=== PATIENT | male | born 1985 | race Two or more races ===

== ENCOUNTER 2023-06-06 15:45 | Emergency (ER) | payer OTHER ==
[~2023-06-06] VITALS: Ht 182.9 cm; Wt 59.0 kg
[2023-06-06 17:09] LABS: HEMATOCRIT 41.5 % (39.0-48.0); HEMOGLOBIN 14.4 g/dL (13-16.00); MEAN CELL VOLUME 90.1 fL (80.0-100.00); MEAN CORPUSCULAR HEMOGLOBIN 31.3 pg (27.00-32.0); MEAN CORPUSCULAR HGB CONC 34.7 g/dl (32.0-36.0); PLATELET COUNT 341 K/uL (150-450); RED BLOOD COUNT 4.61 M/uL (4.00-6.00); RED CELL DISTRIBUTION WIDTH 14.8 % (11.5-14.5)
== END 2023-06-06 17:29 | disposition home or self-care (01) ==
LOC: ER 15:46
PROVIDERS: General Practice
DX: J06.9 Acute upper respiratory infection, unspecified (principal)